=== PATIENT | male | born 1975 | race Two or more races ===

== ENCOUNTER 2022-04-04 10:32 | Emergency (ER) | payer MEDICAID ==
[~2022-04-04] VITALS: Ht 175.3 cm; Wt 110.0 kg
[~2022-04-04 10:32] MED LIST: VENL-190 PO
[2022-04-04 10:59] VITALS: BP 145/100
[2022-04-04] MEDS ORDERED: acetaminophen 325mg tablet PO ONE (11:25)
[2022-04-04] MEDS ORDERED: ondansetron 4mg rapidly disintigrating tab PO ONE (11:25)
[2022-04-04] MEDS ORDERED: ketorolac trometh inj. 60 MG/2 ML VIAL IM ONE (11:25)
== END 2022-04-04 12:31 | disposition home or self-care (01) ==
LOC: ER 10:32
DX: S06.0XAA Concussion with loss of consciousness status unknown, initial encounter (principal); R11.0 Nausea; R51.9 Headache, unspecified; F12.90 Cannabis use, unspecified, uncomplicated; F15.20 Other stimulant dependence, uncomplicated; F19.10 Other psychoactive substance abuse, uncomplicated; Z88.5 Allergy status to narcotic agent; Z56.0 Unemployment, unspecified; X58.XXXA Exposure to other specified factors, initial encounter; Y93.89 Activity, other specified; Y92.89 Other specified places as the place of occurrence of the external cause; Y99.8 Other external cause status
CPT/HCPCS: 71045; 96372; 99283; J1885

== ENCOUNTER 2022-11-26 10:14 | Emergency (ER) | payer MEDICAID ==
[~2022-11-26] VITALS: Ht 175.3 cm; Wt 114.0 kg
[2022-11-26 10:28] VITALS: BP 159/93
[2022-11-26] MEDS ORDERED: bacitracin 15gm ointment TP ONE (11:05)
[2022-11-26] MEDS ORDERED: LIDOcaine 1% W/epiNEPHrine 1:100,000 20ml vial IJ ONE (11:05)
== END 2022-11-26 12:32 | disposition home or self-care (01) ==
LOC: ER 10:14
DX: S51.811A Laceration without foreign body of right forearm, initial encounter (principal); F12.10 Cannabis abuse, uncomplicated; F15.10 Other stimulant abuse, uncomplicated; Z88.6 Allergy status to analgesic agent; F32.A Depression, unspecified
CPT/HCPCS: 12002; 73090; 99283

== ENCOUNTER 2023-04-18 07:16 | Emergency (ER) | payer MEDICAID ==
[~2023-04-18] VITALS: Ht 175.3 cm; Wt 112.7 kg
[2023-04-18 07:27] VITALS: TEMP 98
--- NOTE | 2023-04-18 08:38 | NUR ---
KETTLE CHIPPER GENERAL ASSESSMENT REVIEWED BY FRANSISCO RN; APPROVED.
[2023-04-18] MEDS ORDERED: NAPR-56 PO ×3 (09:19→09:33)
[2023-04-18] MEDS ORDERED: ketorolac trometh inj. 60 MG/2 ML VIAL IM ONE (09:20)
[2023-04-18 09:27] VITALS: BP 153/103; PULSE 60; RESP 18; O2SAT 99
== END 2023-04-18 09:27 | disposition home or self-care (01) ==
LOC: ER 07:17
DX: M25.561 Pain in right knee (principal); F32.A Depression, unspecified; F12.10 Cannabis abuse, uncomplicated; F15.10 Other stimulant abuse, uncomplicated; Z79.899 Other long term (current) drug therapy
CPT/HCPCS: 96372; 99283; J1885